=== PATIENT | female | born 1965 | race Caucasian/White ===

== ENCOUNTER → 2016-04-30 | Outpatient (CLI) | payer BC, OTHER ==
[~2016-04-30] MED LIST: /CIPR75TA OR; ACET65TA OR; FLAG500T OR; MAALSUS OR
--- NOTE | 2016-04-30 16:45 | REPMRS ---
Patient History The patient states she had a clinical breast exam in 2016. Patient is postmenopausal. Family history of unknown cancer in maternal grandmother at age 50 or over and unknown cancer in paternal grandmother at age 50 or over. Digital Mammo Diagnostic Bilateral: April 30, 2016 - Exam #: [id number] Bilateral CC and MLO view(s) were taken. Technologist: Diamante Simons, Technologist Prior study comparison: March 21, 2015, digital mammo diagnostic bilateral performed at [facility]. February 22, 2013, digital mammo diagnostic bilateral performed at [facility]. August 05, 2011, digital woman screen mammo, performed at [facility]. FINDINGS: There are scattered fibroglandular densities. There has been no change in the appearance of the mammogram from the prior studies. There is a mild amount of scattered fibroglandular density which is fairly symmetric. There is no interval development of dominant mass, architectural distortion, or clustered microcalcification suggestive of malignancy. ASSESSMENT: BI-RADS/ACR category 1 mammogram. Negative. Recommendation Routine screening mammogram in 1 year (for women over age 40). This mammogram was interpreted with the aid of an FDA-approved computer-aided dectection system. Electronically Signed By: Jamar Bravo MD 04/30/16 [id number]
== END ==
LOC: M RAD 15:10
PROVIDERS: ATTEND Nurse Practitioner Women's Health
DX: N64.4 Mastodynia (principal)

== ENCOUNTER → 2016-12-29 | Outpatient (CLI) | payer BC, OTHER ==
--- NOTE | 2016-12-29 09:32 | REP ---
MRI THORACIC SPINE WITHOUT CONTRAST: 12/29/2016. Clinical history: Right-sided thoracic pain, no relief with interventional procedure. Technique: Sagittal T1, T2 and STIR images with axial T1 and T2 sequences from the C7-T1 through T12-L1 levels. Marker placed at the T2 level for the cervical thoracic localizer images. Comparison: Rib series 02/08/2014, chest x-ray 06/30/2008. Findings: The normal thoracic gentle kyphosis is noted on the sagittal images. Vertebral body heights are normal throughout. The T6 vertebral body to the right of midline superiorly and laterally shows a small hemangioma with bright signal and T1 and T2 signal sequences. Tiny hemangioma noted on T9 centrally. Schmorl's nodes are seen in T11-12 and T12-L1. The disc space heights and disc water signal are generally preserved. The thoracic cord shows no intrinsic signal abnormality, syrinx, atrophy or mass. The axial images show no disc bulge or herniation from C7-T1 through T10-11. Minimal disc bulge is noted at T11-12 towards the left of midline and toward the foramen. There is no central canal or foraminal stenosis, however. No cord compression. At the T12-L1 there is no significant disc bulge herniation and no spinal or foraminal stenosis. Conus terminates below this level. Impression: 1. No intrinsic cord signal abnormality, syrinx, atrophy or mass. 2. No spinal or foraminal stenosis. The only level with a disc bulges is the left paracentral left lateral disc bulge at T10-11. Otherwise negative exam. Signed by Jose Carlos Sam MD 12/29/2016 10:06 A
== END ==
LOC: M RAD 06:58
PROVIDERS: ATTEND Nurse Practitioner Psychiatric/Mental Health
DX: M54.14 Radiculopathy, thoracic region (principal); M51.06 Intervertebral disc disorders with myelopathy, lumbar region

== ENCOUNTER → 2018-03-27 | Outpatient (CLI) | payer BC, OTHER ==
[2018-03-27 19:39] LABS: HEMATOCRIT 43.4 % (36.0-47.0); HEMOGLOBIN 14.1 g/dl (12.0-15.5); MEAN CORPUSCULAR HEMOGLOBIN 30.3 pg (27.0-33.0); MEAN CORPUSCULAR HGB CONC 32.5 g/dl (32.0-36.5); MEAN CORPUSCULAR VOLUME 93.3 fl (80.0-96.0); PLATELET COUNT, AUTOMATED 323 10^3/uL (150-450); RED BLOOD COUNT 4.65 10^6/uL (4.00-5.40); RED CELL DISTRIBUTION WIDTH 13.2 % (11.5-14.5); WHITE BLOOD COUNT 7.3 10^3/uL (4.0-10.0)
[2018-03-27 19:44] LABS: ALBUMIN/GLOBULIN RATIO 1.33 (1.00-1.93); ALKALINE PHOSPHATASE 101 U/L (45-117); ALT/SGPT 35 U/L (12-78); ANION GAP 7 MEQ/L (8-16); AST/SGOT 19 U/L (7-37); BILIRUBIN,TOTAL 0.4 MG/DL (0.2-1.0); BLOOD UREA NITROGEN 16 MG/DL (7-18); CARBON DIOXIDE LEVEL 29 MEQ/L (21-32); CHLORIDE LEVEL 105 MEQ/L (98-107); CHOLESTEROL LEVEL 257 MG/DL (<200); CHOLESTEROL RISK RATIO 3.724 (<5); CPK CREATINE PHOSPHOKINASE 71 U/L (26-192); CREATININE FOR GFR 0.82 MG/DL (0.55-1.30); GLOMERULAR FILTRATION RATE > 60.0 (>51); GLUCOSE, FASTING 99 MG/DL (70-100); HDL CHOLESTEROL 69 MG/DL (>40); LDL CHOLESTEROL 155 MG/DL (<100); NON-HDL-C 188 MG/DL; POTASSIUM SERUM 4.6 MEQ/L (3.5-5.1); SODIUM LEVEL 141 MEQ/L (136-145); TRIGLYCERIDES LEVEL 167 MG/DL (<150)
== END ==
LOC: M LRY 10:15
DX: E78.00 Pure hypercholesterolemia, unspecified (principal)
CPT/HCPCS: 82550

== ENCOUNTER → 2018-06-26 | Outpatient (CLI) | payer BC, OTHER ==
--- NOTE | 2018-06-26 12:16 | REP ---
PA and lateral chest: Comparison is 06/30/2008. The lung singletary are clear. The cardiac size is normal. The roma, mediastinum, and skeletal structures are unremarkable. Impression: Negative PA and lateral chest. There is no interval change. Electronically Signed by Colton Hill MD 06/26/2018 12:07 P
== END ==
LOC: M LRY 10:46
PROVIDERS: ATTEND Physician Assistant
DX: R05 Cough (principal)

== ENCOUNTER → 2018-08-01 | Outpatient (CLI) | payer OTHER, BC ==
[2018-08-01 09:35] LABS: HEMOGLOBIN 13.4 g/dl (12.0-15.5); MEAN CORPUSCULAR HEMOGLOBIN 29.9 pg (27.0-33.0); MEAN CORPUSCULAR HGB CONC 32.7 g/dl (32.0-36.5); MEAN CORPUSCULAR VOLUME 91.5 fl (80.0-96.0); PLATELET COUNT, AUTOMATED 280 10^3/uL (150-450); RED BLOOD COUNT 4.48 10^6/uL (4.00-5.40); WHITE BLOOD COUNT 7.6 10^3/uL (4.0-10.0)
[2018-08-01 09:50] LABS: ALBUMIN 3.9 GM/DL (3.2-5.2); ALT/SGPT 26 U/L (12-78); BILIRUBIN,TOTAL 0.4 MG/DL (0.2-1.0); BLOOD UREA NITROGEN 16 MG/DL (7-18); CALCIUM LEVEL 8.9 MG/DL (8.5-10.1); CARBON DIOXIDE LEVEL 28 MEQ/L (21-32); CHLORIDE LEVEL 107 MEQ/L (98-107); CHOLESTEROL LEVEL 197 MG/DL (<200); CHOLESTEROL RISK RATIO 3.177 (<5); CPK CREATINE PHOSPHOKINASE 80 U/L (26-192); CREATININE FOR GFR 0.85 MG/DL (0.55-1.30); GLOMERULAR FILTRATION RATE > 60.0 (>51); GLUCOSE, FASTING 103 MG/DL (70-100); HDL CHOLESTEROL 62 MG/DL (>40); LDL CHOLESTEROL 109 MG/DL (<100); NON-HDL-C 135 MG/DL; POTASSIUM SERUM 4.2 MEQ/L (3.5-5.1); SODIUM LEVEL 141 MEQ/L (136-145); TOTAL PROTEIN 6.9 GM/DL (6.4-8.2); TRIGLYCERIDES LEVEL 132 MG/DL (<150)
== END ==
LOC: M WUC 08:40
PROVIDERS: ATTEND Nurse Practitioner Family
DX: E78.00 Pure hypercholesterolemia, unspecified (principal)

== ENCOUNTER → 2019-02-15 | Outpatient (REF) | payer OTHER, BC ==
[2019-02-15 14:21] LABS: BLOOD UREA NITROGEN 16 MG/DL (7-18); C REACTIVE PROTEIN QUANTITATIV < 0.30 MG/DL (0.00-0.30); CREATININE FOR GFR 0.81 MG/DL (0.55-1.30); GLOMERULAR FILTRATION RATE > 60.0 (>51); RHEUMATOID FACTOR QUANT < 10.0 IU/ML (<15.0)
[2019-02-15 14:33] LABS: VITAMIN B12 LEVEL 345 PG/ML
[2019-02-15 14:34] LABS: FOLATE 7.7 NG/ML
[2019-02-19 15:25] LABS: ANTI DOUBLE STRAND-DNA AB <1 IU/mL (0-9); ANTINUCLEAR ANTIBODIES DIRECT Positive (Negative); CARDIOLIPIN IGA ANTIBODY <9 APL U/mL (0-11); CARDIOLIPIN IGG ANTIBODY <9 GPL U/mL (0-14); CARDIOLIPIN IGM ANTIBODY <9 MPL U/mL (0-12); CERULOPLASMIN 22.5 mg/dL (19.0-39.0); COPPER PLASMA 105 ug/dL (72-166); Lyme Disease IgG/IgM Antibodie <0.91 ISR (0.00-0.90); Lyme Disease IgM Ab Quantitati <0.80 index (0.00-0.79); RNP ANTIBODIES 1.3 AI (0.0-0.9); SJOGREN'S ANTI SS-A <0.2 AI (0.0-0.9); SJOGREN'S ANTI SS-B <0.2 AI (0.0-0.9); SMITH ANTIBODIES <0.2 AI (0.0-0.9); VITAMIN B1 LEVEL WHOLE BLOOD 119.9 nmol/L (66.5-200.0); VITAMIN B6,PYRIDOXAL PHOSPHATE 25.1 ug/L (2.0-32.8); VITAMIN E(ALPHA TOCOPHEROL) 8.3 mg/L (7.0-25.1); VITAMIN E(GAMMA TOCOPHEROL) 2.2 mg/L (0.5-5.5)
== END ==
LOC: M LABNEURO 09:06
PROVIDERS: ATTEND Psychiatry & Neurology Neurology
DX: H53.9 Unspecified visual disturbance (principal)

== ENCOUNTER → 2019-09-26 | Outpatient (CLI) | payer BC, OTHER | LOC: M LABSMTC 12:21 | PROVIDERS: ATTEND Family Medicine | DX: Z03.818 Encounter for observation for suspected exposure to other biological agents ruled out (principal) | CPT/HCPCS: C9803; U0003 ==

== ENCOUNTER → 2020-04-27 | Outpatient (REF) | payer OTHER | LOC: M LAB REF 18:26 | PROVIDERS: ATTEND Physician Assistant Medical | DX: Z11.59 Encounter for screening for other viral diseases (principal) ==

== ENCOUNTER → 2021-01-11 | Outpatient (REF) | payer OTHER | LOC: M WUC 19:09 | PROVIDERS: ATTEND Physician Assistant | DX: R30.0 Dysuria (principal) ==

== ENCOUNTER 2021-02-22 06:13 | Emergency (ER) | payer BC, OTHER ==
[~2021-02-22] VITALS: Ht 154.9 cm; Wt 75.0 kg
[2021-02-22] MEDS ORDERED: NS 500 ML IV ONE (08:25)
[2021-02-22 08:50] LABS: BASO # 0.1 10^3/uL (0.0-0.2); BASO % 0.7 % (0.0-1.0); EOS # 0.3 10^3/uL (0.0-0.5); EOS % 3.7 % (0.0-3.0); HEMATOCRIT 41.8 % (36.0-47.0); HEMOGLOBIN 13.6 g/dl (12.0-15.5); MEAN CORPUSCULAR HEMOGLOBIN 30.4 pg (27.0-33.0); MEAN CORPUSCULAR HGB CONC 32.5 g/dl (32.0-36.5); MEAN CORPUSCULAR VOLUME 93.3 fl (80.0-96.0); MONO # 0.5 10^3/uL (0.0-0.8); MONO % 6.4 % (2.0-8.0); NEUTROPHILS # 4.5 10^3/uL (1.5-8.5); NEUTROPHILS % 61.8 % (36.0-66.0); PLATELET COUNT, AUTOMATED 302 10^3/uL (150-450); RED BLOOD COUNT 4.48 10^6/uL (4.00-5.40); WHITE BLOOD COUNT 7.3 10^3/uL (4.0-10.0)
[2021-02-22 09:21] LABS: ALBUMIN 3.9 GM/DL (3.2-5.2); ALT/SGPT 38 U/L (12-78); AMYLASE 55 U/L (25-115); BILIRUBIN,DIRECT < 0.1 MG/DL (0.0-0.2); BILIRUBIN,TOTAL 0.3 MG/DL (0.2-1.0); CK-MB VALUE MASS < 1.0 NG/ML (<3.6); CPK CREATINE PHOSPHOKINASE 77 U/L (26-192); LIPASE 148 U/L (73-393); TOTAL PROTEIN 7.4 GM/DL (6.4-8.2); TROPONIN I < 0.02 NG/ML (< 0.10)
[2021-02-22 09:34] LABS: INR 0.9; PARTIAL THROMBOPLASTIN TIME 26.7 SECONDS (25.9-37.0); PROTHROMBIN TIME 12.6 SECONDS (12.7-14.5)
[2021-02-22] MEDS ORDERED: ISOVUE-370 76% 100ML VIAL As Ordered ONE (09:56)
--- NOTE | 2021-02-22 10:41 | REP ---
INDICATION: mid epigastric pain w black tarry stools. COMPARISON: CT 10/12/2011 TECHNIQUE: Bolus 100 mL Isovue 370 scanning through the abdomen and pelvis with both coronal and sagittal reconstructions. FINDINGS: CT abdomen: The lung bases are clear. Heart is not enlarged there is no pericardial thickening or effusion. There are 2 left hepatic lobe cysts present larger 18 and the smaller 12 mm. No hepatomegaly or biliary dilatation or adjacent ascites. Gallbladder absent with clips in the fossa. The pancreas, adrenal glands, kidneys and spleen remain unremarkable kidneys show function in a symmetric pattern of enhancement without mass, cyst, stone or hydronephrosis. Ureters show normal course the bladder without dilatation or stone. There is no hiatal hernia. Stomach grossly unremarkable. Small bowel loops are without dilatation, wall thickening or adjacent mesenteric inflammatory change. No abnormal enhancement of the gerardo. The aorta is without aneurysm or dissection. No definite periaortic, other retroperitoneal or mesenteric pathologic sized lymphadenopathy. The abdominal portions of the colon show that the left colon and much of the sigmoid are collapsed. Wall thickness therefore difficult to jig builder helper I do not see inflammatory changes in the adjacent fat or mass.2 lung window review of all CT slices shows no perforation or free air. There is a small ventral umbilical hernia with only omental fat and no bowel herniation. Some degenerative changes seen in the endplates of thoracic and lumbar spine but no compression fracture or destructive lesion visualized lower ribs intact. CT pelvis: The bony sacrum, SI joints, pelvis and hips show no acute finding. Bladder shows partial filling but without mass, wall thickening, stone or dilated distal ureter. The uterus is absent, vaginal cuff is intact. No pelvic mass. Distal left colon and proximal sigmoid collapsed without definite colitis or diverticulitis. Small bowel loops in the pelvis were unremarkable. Few small phleboliths are seen in the deep pelvis. No ventral or inguinal hernia nor pathologic sized inguinal adenopathy. No pelvic lymphadenopathy. IMPRESSION: 1. Collapse of the left colon to proximal sigmoid without definite inflammatory changes the adjacent fat to suggest a colitis or diverticulitis. No stricture or mass. 2. Status post cholecystectomy. Solid organs of the upper abdomen show a few hepatic cysts in the left lobe but the spleen, liver, adrenal glands and kidneys are otherwise unremarkable. No pancreatic abnormality. 3. No abdominal or pelvic adenopathy, ascites, abscess or mass. No perforation or free air. 4. Small umbilical hernia with omental fat only within it. No bowel herniation. 5. Bony structures grossly unremarkable. 6. No renal, ureteral or bladder stone. No hydronephrosis or renal mass. <Electronically signed by Jose Carlos Sam > 02/22/21 1037
[2021-02-22] MEDS ORDERED: PROT1TAB2 PO (10:57)
[2021-02-22] MEDS ORDERED: CARA1TAB6 PO (11:00)
[2021-02-22 11:15] VITALS: BP 116/69
== END 2021-02-22 11:19 | disposition home or self-care (01) ==
LOC: M ED 06:13
DX: K92.2 Gastrointestinal hemorrhage, unspecified (principal); R10.9 Unspecified abdominal pain; Z86.16 Personal history of COVID-19; Z88.0 Allergy status to penicillin; Z88.1 Allergy status to other antibiotic agents; Z91.040 Latex allergy status
CPT/HCPCS: 74177; 80047; 80076; 82150; 82550; 82553; 83605; 83690; 84484; 85025; 85610; 85730; 86850; 86900; 86901; 93041; 99284; Q9967

== ENCOUNTER → 2021-09-11 | Outpatient (CLI) | payer BC, OTHER ==
[~2021-09-11] MED LIST changes: +CARA1TAB6 PO; +PROT1TAB2 PO
== END ==
LOC: M WHC 14:47
PROVIDERS: ATTEND Advanced Practice Midwife
DX: Z12.31 Encounter for screening mammogram for malignant neoplasm of breast (principal)

== ENCOUNTER → 2021-11-19 | Outpatient (CLI) | payer BC, OTHER ==
[2021-11-19 17:56] LABS: FREE T4 0.78 NG/DL (0.76-1.46); THYROID STIMULATING HORMONE 1.28 uIU/ML (0.358-3.740)
== END ==
LOC: M LAB 10:41
PROVIDERS: ATTEND Internal Medicine Gastroenterology
DX: K58.0 Irritable bowel syndrome with diarrhea (principal)

== ENCOUNTER → 2021-11-19 | Outpatient (CLI) | payer BC, OTHER | LOC: M LABSMTC 10:22 | PROVIDERS: ATTEND Anesthesiology | DX: Z11.52 Encounter for screening for COVID-19 (principal) ==

== ENCOUNTER → 2021-11-20 | Outpatient (REF) | payer BC, OTHER | LOC: M LAB REF 13:39 | PROVIDERS: ATTEND Internal Medicine Gastroenterology | DX: K58.0 Irritable bowel syndrome with diarrhea (principal) ==

== ENCOUNTER 2021-11-24 10:15 | Day surgery (SDC) | payer BC, OTHER ==
[~2021-11-24] VITALS: Ht 154.9 cm; Wt 73.8 kg
[~2021-11-24 10:15] MED LIST changes: +NS 1,000 ML IV ONE
[2021-11-24] MEDS ORDERED: propofoL 200 MG/20 ML VIAL As Ordered ONE (12:36)
[2021-11-24] MEDS ORDERED: fentaNYL 100 MCG/2 ML INJECTION As Ordered ONE (12:36)
[2021-11-24] MEDS ORDERED: LIDOCAINE 2% 100MG/5ML SDV (FOR ANES.) As Ordered ONE (12:37)
[2021-11-24 12:40] VITALS: BP 116/74
== END 2021-11-24 12:52 | disposition home or self-care (01) ==
LOC: M OPP 10:15
PROVIDERS: ATTEND Internal Medicine Gastroenterology
DX: R19.4 Change in bowel habit (principal); K58.2 Mixed irritable bowel syndrome; R10.9 Unspecified abdominal pain; R19.7 Diarrhea, unspecified; K21.9 Gastro-esophageal reflux disease without esophagitis; F32.A Depression, unspecified; Z88.0 Allergy status to penicillin; Z88.1 Allergy status to other antibiotic agents; Z91.040 Latex allergy status; Z79.899 Other long term (current) drug therapy; Z80.0 Family history of malignant neoplasm of digestive organs
CPT/HCPCS: 43239; 45380; 88305; J3010

== ENCOUNTER → 2022-06-05 | Outpatient (REF) | payer BC, OTHER ==
[~2022-06-05] MED LIST changes: -NS 1,000 ML IV ONE
[2022-06-05 16:54] LABS: PERCENT SATURATION 14.5 % (13.2-45.0)
[2022-06-05 16:56] LABS: FERRITIN 61.1 NG/ML (7.3-270.7)
== END ==
LOC: M LAB REF 16:05
PROVIDERS: ATTEND Internal Medicine
DX: R53.83 Other fatigue (principal); G25.81 Restless legs syndrome

== ENCOUNTER → 2022-08-28 | Outpatient (CLI) | payer BC, OTHER | LOC: M LAB 19:02 | PROVIDERS: ATTEND Physician Assistant | DX: S20.212A Contusion of left front wall of thorax, initial encounter (principal); W18.30XA Fall on same level, unspecified, initial encounter; Y92.009 Unspecified place in unspecified non-institutional (private) residence as the place of occurrence of the external cause ==

== ENCOUNTER → 2022-09-08 | Outpatient (CLI) | payer BC, OTHER | LOC: M WUC 13:00 | PROVIDERS: ATTEND Physician Assistant | DX: S20.212A Contusion of left front wall of thorax, initial encounter (principal); W18.30XA Fall on same level, unspecified, initial encounter; Y92.009 Unspecified place in unspecified non-institutional (private) residence as the place of occurrence of the external cause ==

== ENCOUNTER → 2023-05-12 | Outpatient (CLI) | payer BC, OTHER | LOC: M WHC 08:46 | PROVIDERS: ATTEND Nurse Practitioner Family | DX: Z12.31 Encounter for screening mammogram for malignant neoplasm of breast (principal) ==

== ENCOUNTER → 2023-09-03 | Outpatient (CLI) | payer BC, OTHER ==
[2023-09-03 16:32] LABS: HEMATOCRIT 40.8 % (36.0-47.0); HEMOGLOBIN 13.5 g/dl (12.0-15.5); MEAN CORPUSCULAR HEMOGLOBIN 31.3 pg (27.0-33.0); MEAN CORPUSCULAR HGB CONC 33.1 g/dl (32.0-36.5); MEAN CORPUSCULAR VOLUME 94.7 fl (80.0-96.0); PLATELET COUNT, AUTOMATED 336 10^3/uL (150-450); RED BLOOD COUNT 4.31 10^6/uL (4.00-5.40); WHITE BLOOD COUNT 8.3 10^3/uL (4.0-10.0)
[2023-09-03 16:38] LABS: LIPASE 37 U/L (12-53)
[2023-09-03 16:39] LABS: AMYLASE 57 U/L (30-118)
[2023-09-03 16:40] LABS: ALKALINE PHOSPHATASE 93 U/L (46-116); ALT/SGPT 19 U/L (7.0-40); AST/SGOT 20 U/L (<34); BILIRUBIN,DIRECT 0.2 MG/DL (<0.4); BILIRUBIN,TOTAL 0.5 MG/DL (0.3-1.2); BLOOD UREA NITROGEN 13 MG/DL (9-23); CALCIUM LEVEL 9.5 MG/DL (8.5-10.1); CARBON DIOXIDE LEVEL 29 MMOL/L (20-31); CHLORIDE LEVEL 101 MMOL/L (98-107); CREATININE FOR GFR 0.81 MG/DL (0.55-1.30); GLOMERULAR FILTRATION RATE > 60.0 (>51); GLUCOSE, FASTING 92 MG/DL (60-100); POTASSIUM SERUM 3.9 MMOL/L (3.5-5.1); SODIUM LEVEL 137 MMOL/L (136-145); TOTAL PROTEIN 6.8 G/DL (5.7-8.2)
== END ==
LOC: M WUC 13:35
PROVIDERS: ATTEND Plastic Surgery
DX: E66.9 Obesity, unspecified (principal)

== ENCOUNTER → 2023-09-09 | Outpatient (REF) | payer OTHER | LOC: M LAB REF 10:37 | PROVIDERS: ATTEND Internal Medicine | DX: R19.7 Diarrhea, unspecified (principal) ==

== ENCOUNTER → 2024-01-18 | Outpatient (REF) | payer OTHER, BC ==
[2024-01-18 18:50] LABS: PERCENT SATURATION 16.7 % (13.2-45.0)
[2024-01-18 18:52] LABS: FERRITIN 153.4 NG/ML (7.3-270.7)
== END ==
LOC: M LAB REF 17:55
PROVIDERS: ATTEND Internal Medicine
DX: D64.9 Anemia, unspecified (principal)

== ENCOUNTER → 2024-05-15 | Outpatient (CLI) | payer BC | LOC: M WHC 15:30 | PROVIDERS: ATTEND Nurse Practitioner Family | DX: Z12.31 Encounter for screening mammogram for malignant neoplasm of breast (principal) ==

== ENCOUNTER → 2025-01-18 | Outpatient (REF) | payer BC ==
[~2025-01-18] MED LIST changes: +LEXA5TAB13 PO; +TRAM50TA2 PO
== END ==
LOC: M LAB REF 12:25
PROVIDERS: ATTEND Internal Medicine
DX: Z00.00 Encounter for general adult medical examination without abnormal findings (principal); Z82.49 Family history of ischemic heart disease and other diseases of the circulatory system